=== PATIENT | male | born 1985 | race Caucasian/White ===

== ENCOUNTER 2020-04-12 22:10 | Inpatient (IN) | payer MEDICAID ==
[~2020-04-12] VITALS: Ht 188 cm; Wt 84.8 kg
[~2020-04-12 22:10] MED LIST: ARIP10TA8 PO; LEVO25TA9 PO; OMEP20 PO
[2020-04-13] MEDS ORDERED: ZOLPIDEM TARTRATE 10 MG TABLET PO PRN
[2020-04-13 03:11] VITALS: BP 138/96
[2020-04-13] MEDS ORDERED: BENZOCAINE/MENTHOL LOZENGE MM PRN (07:15)
[2020-04-13] MEDS ORDERED: IBUPROFEN 600 MG TABLET PO PRN (07:15)
[2020-04-13] MEDS ORDERED: LOPERAMIDE HCL 2 MG CAPSULE PO PRN (07:15)
[2020-04-13] MEDS ORDERED: CloNIDine HCL 0.1 MG TABLET PO PRN (07:15)
[2020-04-13] MEDS ORDERED: BACITRACIN 28.4 GM OINTMENT TP PRN (07:15)
[2020-04-13] MEDS ORDERED: ONDANSETRON HCL 4 MG TABLET PO PRN (07:15)
[2020-04-13] MEDS ORDERED: PETROLATUM,WHITE 28 GM JELLY TP PRN (07:15)
[2020-04-13] MEDS ORDERED: MAG HYDROX/AL HYDROX/SIMETH ES 30 ML SUSPENSION UDCUP PO PRN (07:15)
[2020-04-13] MEDS ORDERED: MAGNESIUM HYDROXIDE SUSPENSION 30 ML UDCUP PO PRN (07:15)
[2020-04-13] MEDS ORDERED: DOCUSATE SODIUM 100 MG CAPSULE PO PRN (07:15)
[2020-04-13] MEDS ORDERED: ALBUTEROL SULFATE HFA 90 MCG/PUFF 8 GM INHALER IH PRN (07:15)
[2020-04-13] MEDS ORDERED: ACETAMINOPHEN 325 MG TABLET PO PRN (07:15)
[2020-04-13] MEDS ORDERED: OMEPRAZOLE 20 MG CAPSULE PO PRN (07:15)
[2020-04-13 07:43] LABS: BASOPHILS % (AUTO) 1.4 % (0.0-2.0); EOSINOPHILS % (AUTO) 6.1 % (1.0-6.0); HEMATOCRIT 34.9 % (41-53); HEMOGLOBIN 11.6 g/dL (13.5-17.5); LYMPHOCYTES # (AUTO) 1.9 K/uL (1.0-4.8); LYMPHOCYTES % (AUTO) 49.7 % (22.0-44.0); MEAN CORPUSCULAR HEMOGLOBIN 28.4 pg (26.0-34.0); MEAN CORPUSCULAR HGB CONC 33.3 G/dL (31.0-37.0); MEAN CORPUSCULAR VOLUME 85 fL (80-100); MONOCYTES # (AUTO) 0.2 K/uL (0.1-1.0); MONOCYTES % (AUTO) 5.9 % (2.0-9.0); NEUTROPHILS # (AUTO) 1.4 K/uL (1.8-7.7); NEUTROPHILS % (AUTO) 36.9 % (40.0-70.0); PLATELET COUNT (AUTO) 290 K/uL (150-450); RED BLOOD CELL COUNT(AUTO) 4.08 MIL/uL (4.50-5.90); RED CELL DISTRIBUTION WIDTH 13.5 % (11.5-14.5)
[2020-04-13 08:04] VITALS: BP 138/69
[2020-04-13 08:09] LABS: ALANINE AMINOTRANSFERASE 17 U/L (12-78); ALBUMIN 3.5 g/dL (3.4-5.0); ALKALINE PHOSPHATASE 72 U/L (46-116); ANION GAP 8 mmol/L (8-16); ASPARTATE AMINOTRANSFERASE 15 U/L (15-37); BILIRUBIN,TOTAL 0.6 mg/dL (0.1-1.0); CALCIUM, TOTAL 8.6 mg/dL (8.8-10.5); CARBON DIOXIDE 29 mmol/L (22-29); CHLORIDE 105 mmol/L (98-107); CHOL/HDL RATIO 2.4 (4.2-7.3); CHOLESTEROL 112 mg/dL (131-200); CREATININE 1.11 mg/dL (0.60-1.30); FREE T4 (FREE THYROXINE) 1.06 ng/dL (0.76-1.46); GLOMERULAR FILTR. RATE CALC > 60 mL/min (>60); GLUCOSE,RANDOM 89 mg/dL (70-110); HDL CHOLESTEROL 46 mg/dL (40-60); LDL CHOL (CALC.) 58 mg/dL (0-130); POTASSIUM 3.3 mmol/L (3.5-5.1); SODIUM SERUM 142 mmol/L (136-145); THYROID STIMULATING HORMONE 2.46 uIU/mL (0.36-3.74); TOTAL PROTEIN, SERUM 6.9 g/dL (6.4-8.2); TRIGLYCERIDES 41 mg/dL (15-150); UREA NITROGEN, BLOOD 6 mg/dL (7-18)
[2020-04-13 08:15] LABS: HEMOGLOBIN A1C 5.4 % (3.8-5.6)
[2020-04-13] MEDS: OMEPRAZOLE 20 MG CAPSULE PO SCH (09:01)
[2020-04-13] MEDS ORDERED: POTASSIUM CHLORIDE 20 MEQ ER TABLET PO ONE (09:15)
[2020-04-13] MEDS: ARIPiprazole 15 MG TABLET PO SCH (16:57)
[2020-04-13 17:00] VITALS: BP 139/60
[2020-04-14] MEDS: LEVOTHYROXINE SODIUM 25 MCG TABLET PO SCH (05:32)
[2020-04-14 06:19] VITALS: BP 110/62
[2020-04-14 07:33] LABS: APPEARANCE,URINE CLEAR (CLEAR); BILIRUBIN,URINE NEGATIVE (NEGATIVE); GLUCOSE, URINE (UA) NEGATIVE (NEGATIVE); KETONES,URINE NEGATIVE (NEGATIVE); LEUKOCYTE ESTERASE ,URINE NEGATIVE (NEGATIVE); NITRATE,URINE NEGATIVE (NEGATIVE); OCCULT BLOOD,URINE NEGATIVE (NEGATIVE); PH,URINE 7.5 (5.0-8.0); PROTEIN,URINE NEGATIVE (NEGATIVE)
[2020-04-14 07:45] LABS: AMPHET/METH SCREEN,URINE NEGATIVE (NEGATIVE); BARBITURATE SCREEN, URINE NEGATIVE (NEGATIVE); BENZODIAZEPINES SCREEN,URINE NEGATIVE (NEGATIVE); CANNABINOID SCREEN,URINE POSITIVE (NEGATIVE); COCAINE SCREEN,URINE NEGATIVE (NEGATIVE); METHADONE SCREEN, URINE NEGATIVE (NEGATIVE); OPIATE SCREEN,URINE NEGATIVE (NEGATIVE)
[2020-04-14 08:04] LABS: PHENCYCLIDINE SCREEN,URINE NEGATIVE (NEGATIVE)
[2020-04-14 08:21] VITALS: BP 109/59
[2020-04-14] MEDS: ARIPiprazole 15 MG TABLET PO SCH (08:34)
[2020-04-14] MEDS: OMEPRAZOLE 20 MG CAPSULE PO SCH (08:34)
[2020-04-14 16:16] VITALS: BP 143/82
[2020-04-15 06:23] VITALS: BP 110/68
[2020-04-15] MEDS: LEVOTHYROXINE SODIUM 25 MCG TABLET PO SCH (06:26)
[2020-04-15 08:13] VITALS: BP 125/80
[2020-04-15] MEDS: ARIPiprazole 15 MG TABLET PO SCH (08:21)
[2020-04-15] MEDS: OMEPRAZOLE 20 MG CAPSULE PO SCH (08:21)
[2020-04-16] MEDS: LEVOTHYROXINE SODIUM 25 MCG TABLET PO SCH (06:14)
[2020-04-16 06:45] VITALS: BP 112/89
[2020-04-16] MEDS: ARIPiprazole 15 MG TABLET PO SCH (08:26)
[2020-04-16] MEDS: OMEPRAZOLE 20 MG CAPSULE PO SCH (08:26)
[2020-04-16 08:45] VITALS: BP 112/65
[2020-04-16 16:10] VITALS: BP 114/72
[2020-04-17 06:07] VITALS: BP 118/65
[2020-04-17] MEDS: LEVOTHYROXINE SODIUM 25 MCG TABLET PO SCH (06:25)
[2020-04-17] MEDS: ARIPiprazole 15 MG TABLET PO SCH (08:36)
[2020-04-17] MEDS: OMEPRAZOLE 20 MG CAPSULE PO SCH (08:36)
[2020-04-17 09:46] VITALS: BP 122/82
[2020-04-17 16:12] VITALS: BP 131/76
[2020-04-17] MEDS ORDERED: ChlorproMAZINE HCL 25 MG/ML 2 ML AMP IM ONE (18:45)
[2020-04-17] MEDS ORDERED: DiphenhydrAMINE HCL 50 MG/ML VIAL IM ONE (18:45)
[2020-04-17] MEDS ORDERED: LORazepam 2 MG/ML VIAL IM ONE (18:45)
[2020-04-17] MEDS ORDERED: LORazepam 2 MG/ML VIAL ONE (18:46)
[2020-04-17] MEDS ORDERED: DiphenhydrAMINE HCL 50 MG/ML VIAL ONE (18:46)
[2020-04-17] MEDS ORDERED: ChlorproMAZINE HCL 25 MG/ML 2 ML AMP ONE (18:46)
[2020-04-17 19:30] VITALS: BP 101/61
[2020-04-18] MEDS: LEVOTHYROXINE SODIUM 25 MCG TABLET PO SCH (06:13)
[2020-04-18 08:09] VITALS: BP 117/74
[2020-04-18] MEDS: OMEPRAZOLE 20 MG CAPSULE PO SCH (09:14)
[2020-04-18] MEDS: ARIPiprazole 15 MG TABLET PO SCH (09:14)
[2020-04-19] MEDS: LEVOTHYROXINE SODIUM 25 MCG TABLET PO SCH (06:11)
[2020-04-19] MEDS: OMEPRAZOLE 20 MG CAPSULE PO SCH (08:52)
[2020-04-19] MEDS: LORazepam 2 MG TABLET PO PRN ×2 (08:52→16:01)
[2020-04-19] MEDS: ARIPiprazole 15 MG TABLET PO SCH (08:52)
[2020-04-19] MEDS: HALOPERIDOL 5 MG TABLET PO PRN (08:53)
[2020-04-20] MEDS: LEVOTHYROXINE SODIUM 25 MCG TABLET PO SCH (05:51)
[2020-04-20 06:52] VITALS: BP 108/67
[2020-04-20] MEDS: OMEPRAZOLE 20 MG CAPSULE PO SCH (08:37)
[2020-04-20] MEDS: ARIPiprazole 15 MG TABLET PO SCH (08:37)
[2020-04-20] MEDS: HALOPERIDOL 5 MG TABLET PO PRN (16:35)
[2020-04-20] MEDS: LORazepam 2 MG TABLET PO PRN (16:35)
[2020-04-21] MEDS: LEVOTHYROXINE SODIUM 25 MCG TABLET PO SCH (05:34)
[2020-04-21 08:41] VITALS: BP 103/54
[2020-04-21] MEDS: OMEPRAZOLE 20 MG CAPSULE PO SCH (09:24)
[2020-04-21] MEDS: ARIPiprazole 15 MG TABLET PO SCH (09:24)
== END 2020-04-21 20:47 | disposition left against medical advice (07) | DRG 885 ==
LOC: B3A 23:53
PROVIDERS: ADMIT Psychiatry & Neurology Child & Adolescent Psychiatry; ATTEND Psychiatry & Neurology Child & Adolescent Psychiatry
DX: F25.1 Schizoaffective disorder, depressive type (principal); F41.9 Anxiety disorder, unspecified; Z79.899 Other long term (current) drug therapy; Z88.0 Allergy status to penicillin; Z88.8 Allergy status to other drugs, medicaments and biological substances; F32.9 Major depressive disorder, single episode, unspecified; F17.200 Nicotine dependence, unspecified, uncomplicated; F19.10 Other psychoactive substance abuse, uncomplicated; E03.9 Hypothyroidism, unspecified; E87.6 Hypokalemia; G47.00 Insomnia, unspecified; K59.00 Constipation, unspecified; Z59.0 Homelessness
CPT/HCPCS: 80307; 83036; 84132; 84439; 84443; J1200; J2060; J3230